=== PATIENT | male | born 1950 | race Caucasian/White ===

== ENCOUNTER 2017-12-05 10:34 | Emergency (ER) | payer MEDICARE ==
[2017-12-05] MEDS ORDERED: ASPIRIN 81 MG TABLET, CHEWABLE PO ONE (11:55)
--- NOTE | 2017-12-05 11:57 | ER Document Report ---
ED Medical Screen (RME) - General Chief Complaint: Chest Pain > 30 Stated Complaint: CHEST PAIN Time Seen by Provider: 12/05/17 11:54 TRAVEL OUTSIDE OF THE [place] IN LAST 30 DAYS: No - HPI Notes: 12/05/17 11:57 Chest pain 45 minutes prior to arrival history of AL in the past with one stent - Related Data Allergies/Adverse Reactions: No Known Allergies Allergy (Unverified 12/05/17 10:37) Past Medical History - Social History Frequency of alcohol use: None Drug Abuse: None - Past Medical History Cardiac Medical History: Reports: Hx Heart Attack - 2003 Endocrine Medical History: Reports: Hx Diabetes Mellitus Type 2 Renal/ Medical History: Denies: Hx Peritoneal Dialysis Review of Systems - Review of Systems Cardiovascular: Chest pain Physical Exam - Vital signs Vitals: Temp Pulse Resp BP Pulse Ox 97.5 F 68 16 136/75 H 100 12/05/17 10:54 12/05/17 10:54 12/05/17 10:54 12/05/17 10:54 12/05/17 10:54 - Respiratory Respiratory status: No respiratory distress Chest status: Nontender Breath sounds: Normal Chest palpation: Normal - Cardiovascular Rhythm: Regular Heart sounds: Normal auscultation Course - Vital Signs Vital signs: Temp Pulse Resp BP Pulse Ox 97.5 F 68 16 136/75 H 100 12/05/17 10:54 12/05/17 10:54 12/05/17 10:54 12/05/17 10:54 12/05/17 10:54
--- NOTE | 2017-12-05 12:20 | RADIOLOGY REPORT (SQ) ---
EXAM DESCRIPTION: CHEST 2 VIEWS COMPLETED DATE/TIME: 12/05/2017 11:35 am REASON FOR STUDY: cp COMPARISON: None. EXAM PARAMETERS: NUMBER OF VIEWS: two views TECHNIQUE: Digital Frontal and Lateral radiographic views of the chest acquired. RADIATION DOSE: NA LIMITATIONS: none FINDINGS: LUNGS AND PLEURA: No opacities, masses or pneumothorax. No pleural effusion. MEDIASTINUM AND HILAR STRUCTURES: No masses or contour abnormalities. HEART AND VASCULAR STRUCTURES: Heart normal size. No evidence for failure. BONES: No acute findings. HARDWARE: None in the chest. OTHER: No other significant finding. IMPRESSION: NO ACUTE RADIOGRAPHIC FINDING IN THE CHEST. TECHNICAL DOCUMENTATION: JOB ID: [id number] [facility]- All Rights Reserved Reading location - IP/workstation name: [email or web address]
[2017-12-05 12:57] LABS: ABSOLUTE LYMPHOCYTES (AUTO) 1.5 10^3/uL (0.5-4.7); ABSOLUTE MONOCYTES (AUTO) 0.6 10^3/uL (0.1-1.4); ABSOLUTE NEUT (AUTO) 10.7 10^3/uL (1.7-8.2); BASOPHILS % (AUTO) 0.2 % (0-2); EOSINOPHILS % (AUTO) 0.4 % (0-6); HEMATOCRIT 44.6 % (37.9-51.0); HEMOGLOBIN 15.3 g/dL (13.5-17.0); INTERNATIONAL RATION (INR) 0.94; LYMPHOCYTES % (AUTO) 11.4 % (13-45); MEAN CORPUSCULAR HEMOGLOBIN 31.1 pg (27.0-33.4); MEAN CORPUSCULAR HGB CONC 34.4 g/dL (32.0-36.0); MEAN CORPUSCULAR VOLUME 91 fl (80-97); MONOCYTES % (AUTO) 4.7 % (3-13); PLATELET COUNT 218 10^3/uL (150-450); PROTHROMBIN TIME 13.1 SEC (11.4-15.4); RED BLOOD COUNT 4.92 10^6/uL (4.35-5.55); RED CELL DISTRIBUTION WIDTH 13.1 % (11.5-14.0); SEGMENTED NEUTROPHILS % (AUTO) 83.3 % (42-78); TOTAL CELLS COUNTED % (AUTO) 100 %; WHITE BLOOD COUNT 12.8 10^3/uL (4.0-10.5)
[2017-12-05 13:17] LABS: ALANINE AMINOTRANSFERASE 30 U/L (21-72); ALBUMIN 5.1 g/dL (3.5-5.0); ALKALINE PHOSPHATASE 46 U/L (38-126); ANION GAP 13 (5-19); ASPARTATE AMINO TRANSFERASE 38 U/L (17-59); BILIRUBIN,DIRECT 0.7 mg/dL (0.0-0.4); BILIRUBIN,TOTAL 1.6 mg/dL (0.2-1.3); BLOOD UREA NITROGEN 26 mg/dL (7-20); CALCIUM 10.4 mg/dL (8.4-10.2); CARBON DIOXIDE 29 mmol/L (22-30); CHLORIDE 101 mmol/L (98-107); CREATINE KINASE 159 U/L (55-170); GLUCOSE 162 mg/dL (75-110); POTASSIUM 4.6 mmol/L (3.6-5.0); SODIUM 142.5 mmol/L (137-145)
[2017-12-05 13:42] LABS: CREATINE KINASE MB 2.79 ng/mL (<4.55)
[2017-12-05 13:46] LABS: TROPONIN I 0.138 ng/mL
--- NOTE | 2017-12-05 14:35 | ER Document Report ---
ED Cardiac - General Chief Complaint: Chest Pain > 30 Stated Complaint: CHEST PAIN Time Seen by Provider: 12/05/17 11:54 Mode of Arrival: Ambulatory Information source: Patient Notes: This is a 67-year-old man with a history of coronary artery disease (stent, angioplasty), hypertension, diabetes and dyslipidemia who presents to the emergency room with retrosternal chest pressure lasting approximately an hour while he was doing yard work at his son's house. The patient is visiting from [place] where he had a cardiac catheterization in 2002. Currently he is pain -free. The chest pain started at approximately 10 AM. TRAVEL OUTSIDE OF THE [place] IN LAST 30 DAYS: No - HPI Patient complains to provider of: Chest pain Use of: denies: Alcohol, Amphetamines, Bath salts, Caffeine, Cocaine, Decongestants, Other Was the onset of pain: Gradual Is the pain a: New problem Chest pain location: Substernal Quality of pain: Dull Chest pain radiation location: None Severity now: None Severity at worst: Moderate Pain level currently: Denies Chest pain precipitating factors: Physical Exertion Cardiac risk factors: Diabetes, Hypertension, Dyslipidemia, Hx CO Positive cardiac history: Yes Associated symptoms: denies: Abdominal pain, Fever/chills, Palpitations, Shortness of breath Exacerbated by: Denies Relieved by: Nothing Similar symptoms previously: No Recently seen / treated by doctor: No - Related Data Allergies/Adverse Reactions: No Known Allergies Allergy (Unverified 12/05/17 10:37) Past Medical History - General Information source: Patient - Social History Smoking Status: Never Smoker Cigarette use (# per day): No Chew tobacco use (# tins/day): No Frequency of alcohol use: None Drug Abuse: None Lives with: Family Family History: None Patient has suicidal ideation: No Patient has homicidal ideation: No - Past Medical History Cardiac Medical History: Reports: Hx Heart Attack - 2003 Endocrine Medical History: Reports: Hx Diabetes Mellitus Type 2 Renal/ Medical History: Denies: Hx Peritoneal Dialysis Past Surgical History: Reports: Hx Cardiac Catheterization Review of Systems - Review of Systems Constitutional: denies: Chills, Fever EENT: No symptoms reported Cardiovascular: See HPI, Chest pain Respiratory: No symptoms reported Gastrointestinal: No symptoms reported Genitourinary: No symptoms reported Male Genitourinary: No symptoms reported Musculoskeletal: No symptoms reported Skin: No symptoms reported Hematologic/Lymphatic: No symptoms reported Neurological/Psychological: No symptoms reported Physical Exam - Vital signs Vitals: Temp Pulse Resp BP Pulse Ox 97.5 F 68 16 136/75 H 100 12/05/17 10:54 12/05/17 10:54 12/05/17 10:54 12/05/17 10:54 12/05/17 10:54 Notes: Physical exam: GENERAL: 67-year-old man, alert and oriented 3, no acute distress HEAD: Atraumatic, normocephalic. EYES: Pupils equal round and reactive to light, extraocular movements intact, sclera anicteric, conjunctiva are normal. ENT: TMs normal, nares patent, oropharynx clear without exudates. Moist mucous membranes. NECK: Normal range of motion, supple without obvious mass or JVD. LUNGS: Breath sounds clear to auscultation bilaterally and equal. No wheezes rales or rhonchi. HEART: Regular rate and rhythm without murmurs, rubs or gallops. ABDOMEN: Soft, normoactive bowel sounds. No tenderness to palpation. No guarding, no rebound. No masses appreciated. EXTREMITIES: Normal range of motion, no pitting or edema. No clubbing or cyanosis. NEUROLOGICAL: Cranial nerves II through XII grossly intact. Normal speech, moving all extremities. PSYCH: Normal mood, normal affect. SKIN: Warm, Dry, normal turgor, no rashes or lesions noted. Course - Re-evaluation Re-evalutation: 12/05/17 18:[address] Dang who recommends patient should be transferred for catheterization as he will probably require some amount of revascularization. Patient is currently pain-free. He has received aspirin, Lovenox and Plavix. He is taking his own medicines which are at the bedside. [facility] was contacted and is not taking any transfers. [facility] was contacted and they have no beds with a long waiting list. I discussed the case with Dr. Brooks at [facility] who is except that the patient for transfer. While they do have a wait, they are moving some beds. 12/05/17 21:20 - Vital Signs Vital signs: Temp Pulse Resp BP Pulse Ox 97.8 F 68 19 120/57 L 98 12/05/17 17:58 12/05/17 10:54 12/05/17 21:01 12/05/17 21:01 12/05/17 21:01 - Laboratory Result Diagrams: 12/05/17 12:22 12/05/17 12:22 Laboratory results interpreted by me: 12/05/17 12/05/17 12:22 12:22 WBC 12.8 H Seg Neutrophils % 83.3 H Lymphocytes % 11.4 L Absolute Neutrophils 10.7 H BUN 26 H Glucose 162 H Calcium 10.4 H Total Bilirubin 1.6 H Direct Bilirubin 0.7 H Total Protein 9.0 H Albumin 5.1 H - Diagnostic Test Radiology reviewed: Image reviewed, Reports reviewed - X-ray shows no infiltrates - EKG Interpretation by Me Rate: Normal Rhythm: NSR - EKG#1:The ventricular rate of 65, right bundle branch block, no acute ST-T wave changes. There is no old EKG to compare. EKG #2 shows a ventricular rate of 79, no acute changes from EKG #1. Critical Care Note - Critical Care Note Total time excluding time spent on procedures (mins): 60 Discharge - Discharge Clinical Impression: NSTEMI Condition: Stable Disposition: [facility]
[2017-12-05] MEDS ORDERED: ENOXAPARIN SODIUM INJ 100 MG/1 ML DISP.SYRIN SUBCUT ONE (17:11)
[2017-12-05] MEDS ORDERED: CLOPIDOGREL BISULFATE 300 MG TABLET PO ONE (17:47)
[2017-12-05] MEDS ORDERED: METFORMIN HCL 500 MG TABLET PO SCH (19:00)
--- NOTE | 2017-12-05 21:57 | EKG REPORT ---
SEVERITY:- ABNORMAL ECG - SINUS RHYTHM RIGHT BUNDLE BRANCH BLOCK : Confirmed by: Bushra Dang MD 05-Dec-2017 21:56:31
--- NOTE | 2017-12-05 21:57 | EKG REPORT ---
SEVERITY:- ABNORMAL ECG - SINUS RHYTHM MULTIPLE ATRIAL PREMATURE COMPLEXES RIGHT BUNDLE BRANCH BLOCK : Confirmed by: Bushra Dang MD 05-Dec-2017 21:56:27
[2017-12-06 01:57] VITALS: BP 110/74
== END 2017-12-06 02:50 | disposition short-term general hospital (02) ==
LOC: ER 10:34
DX: I21.4 Non-ST elevation (NSTEMI) myocardial infarction (principal); I25.10 Atherosclerotic heart disease of native coronary artery without angina pectoris; I10 Essential (primary) hypertension; E11.9 Type 2 diabetes mellitus without complications; I25.2 Old myocardial infarction
CPT/HCPCS: 93005; 99291; 96372; 36415; 82553; 82550; 85025; 85610; 80053; 84484; 71046; 93010; A9270 ×2; J1650; J3490